=== PATIENT | female | born 1975 | race Caucasian/White ===

== ENCOUNTER → 2025-02-15 08:00 | Outpatient (REF) | payer OTHER, SELFPAY | LOC: RAD 08:00 | PROVIDERS: ATTENDING PHYSICIAN Family Medicine | DX: M79.604 Pain in right leg (principal) | CPT/HCPCS: 93971 ==

== ENCOUNTER 2025-04-30 10:29 | Emergency (ER) | payer OTHER, SELFPAY ==
[2025-04-30 10:30] VITALS: BP 179/100
--- NOTE | 2025-04-30 12:20 | ED.GENMED ---
History of Present Illness
General
Chief Complaint: Nose Bleed
Source: patient
Exam Limitations: none
Time Seen by Provider: 04/30/25 12:02
Nursing documentation reviewed up to this point in time: agreed with
History of Present Illness
History of Present Illness:
Note:
CHIEF COMPLAINT(S)
Nosebleed.
HISTORY OF PRESENT ILLNESS
The patient is a 50-year-old female who presented with a nosebleed occurring twice; the first episode lasted approximately 30 minutes. The patient is uncertain if the bleeding has been from one particular nostril and denies previous occurrences of
similar episodes. She did describe the presence of a significant clot at one point, which exited through the nose. There was no coughing of blood. The patient did not report any associated symptoms such as dizziness or lightheadedness, and there is
no history of nasal trauma or known bleeding disorders. The patient is advised not to touch or manipulate the nose to avoid disrupting any potential fragile vessels.
PLAN
The patient is instructed to use nasal saline and prescribed nasal drops to constrict blood vessels, with usage limited to three days to avoid potential rebound effects or nasal irritation. She is advised to sneeze with her mouth open to decrease
nasal pressure. The patient is also advised to refrain from blowing her nose for one to two weeks to allow the nasal tissues to heal adequately. A follow-up with an Ear, Nose, and Throat (ENT) specialist will be arranged to evaluate if further
intervention is needed. The patient is advised to follow up with her primary care physician for a blood pressure evaluation, as hypertension can contribute to epistaxis. She is also offered information to consult a specialist for blood pressure
management.
PHYSICAL EXAM
General: Alert, cooperative, no acute distress.
Skin: Warm, dry.
Head: Normocephalic, atraumatic.
Neck: Supple, trachea midline.
Eye Ears, Nose, Mouth and Throat: Oral mucosa moist, no visible hematomas or widening in the nasal area observed.
Cardiovascular: Normal peripheral perfusion, no edema.
Respiratory: Respirations are non-labored.
Gastrointestinal: Abdomen nondistended.
Back: Normal range of motion, normal alignment.
Musculoskeletal: Normal range of motion, normal strength.
Neurological: Alert and oriented to person, place, time, and situation, no focal neurological deficit observed.
Psychiatric: Cooperative, appropriate mood and affect.
DIFFERENTIAL DIAGNOSIS
The Differential Diagnosis includes, in no particular order and is not limited to:
1. Hypertension-related epistaxis
2. Nasal trauma
3. Nasal dryness or irritation
4. Coagulation disorder
5. Nasal septum deviation
6. Allergic rhinitis
7. Nasal polyps
8. Sinusitis
9. Medication-induced epistaxis (e.g., anticoagulants)
10. Hemangioma of the nasal passage
CARE-UPDATE
04/30/25 - 14:03
50-year-old female with epistaxis resolving, now stable and able for discharge. Patient prescribed oxymetalzone. Advised follow-up with cardiology to monitor blood pressure and with ENT if necessary.
Disposition:
SUMMARY OF ENCOUNTER
The patient, a 50-year-old female, presented with episodes of nosebleed, with the first occurring for approximately 30 minutes. She was uncertain if it originated from a specific nostril and noted a significant clot exiting through the nose. The
patient reported no previous similar episodes, no coughing of blood, dizziness, or lightheadedness, and denied any nasal trauma or known bleeding disorders. In the emergency department, she was managed with instructions to avoid contact with her
nose, avoid blowing her nose, and to utilize nasal saline along with a prescribed nasal decongestant for a limited duration to manage the symptoms and prevent recurrence.
DISPOSITION
Discharge home.
ASSESSMENT
Epistaxis, likely benign in nature.
PLAN
The patient is advised to use nasal saline and prescribed oxymetazoline drops limited to three days to constrict blood vessels. She should sneeze with her mouth open to reduce nasal pressure and avoid blowing her nose for one to two weeks to allow
for proper healing of the nasal tissues. A follow-up with an Ear, Nose, and Throat (ENT) specialist is arranged to determine if further intervention is needed. The patient should also follow up with her primary care physician for a blood pressure
check, as hypertension can contribute to nosebleeds. Information for consulting a specialist for blood pressure management is offered.
PATIENT EDUCATION AND COUNSELING
The patient was educated on avoiding manipulation of the nose, refraining from nose blowing, and using prescribed medications appropriately to prevent further episodes of epistaxis.
FOLLOW-UP INSTRUCTIONS
The patient is advised to follow up with a insurance coordinator for blood pressure evaluation and management and with an ENT specialist if further evaluation and treatment is necessary.
MEDICATION RECONCILIATION
Oxymetazoline nasal drops prescribed for three days.
MEDICAL DECISION MAKING
- Number and Complexity of Problems Addressed: Chronic conditions affecting care. The differential diagnosis included hypertension-related epistaxis, nasal trauma, nasal dryness or irritation, coagulation disorder, nasal septum deviation, allergic
rhinitis, nasal polyps, sinusitis, medication-induced epistaxis, and hemangioma of the nasal passage.
- Risk: Prescription medication was prescribed. Consideration of Admission/Observation: Escalation of care including admission/observation was considered given the complexity and risk of the patients presenting complaint, exam findings, and/or their
underlying comorbidities. However, ultimately I feel the patient is safe for outpatient management with close follow-up. Reasoning: Work-up reassuring, does not reveal any acute life/organ-threatening processes, patients symptoms well controlled
upon reevaluation, reexamination is reassuring, vitals are stable, patient agreeable with discharge, reliable for follow-up.
DIAGNOSIS
Epistaxis (R04.0)
Past History
Past History
ED Past Medical History: None
ED Past Surgical History: None
Social History
Tobacco: Non-smoker
Alcohol: None
Drug: None
Living: with family
Phy Exam
Physical Exam
Physical Exam:
.
Course
Orders/Labs/Results
Orders:
Orders
04/30/25 12:27
Oxymetazoline HCl [Afrin Nasal Peck] See Dose Instructions NASAL STAT STA
Vital Signs
Initial and Last Documented VS:
Initial Vital Signs
Temp Pulse Resp BP Pulse Ox
98.3 F 84 18 179/100 100
04/30/25 10:30 04/30/25 10:30 04/30/25 10:30 04/30/25 10:30 04/30/25 10:30
Last Documented Vital Signs
Temp Pulse Resp BP Pulse Ox
98.3 F 84 18 179/100 100
04/30/25 10:30 04/30/25 10:30 04/30/25 10:30 04/30/25 10:30 04/30/25 12:20
*Pulse Oximetry
SaO2: 100
Oxygen Mode of Delivery: Room air
Patient hypoxic: no
*Critical Care Note
Total Time (30-74mins, 75-104mins- exclusive of procedures): Not Applicable
ED Attending Note
-
Portions of this chart may have been created with voice recognition software.� Occasional wrong word or��sound alike� substitutions may have occurred due to the inherent limitations of voice recognition software.
Discharge Plan
Departure
Patient Disposition: Home (Routine Discharge)
Date of Disposition: 04/30/25
Time of Disposition: 12:28
Patient with high blood pressure during this ER visit?: Yes
Condition: Good
Discharge Problem:
Acute anterior epistaxis
Instructions: Nosebleeds (DC), BLOOD PRESSURE
Prescriptions:
No Action
metoprolol tartrate 100 MG tablet
100 mg PO HS
losartan [Cozaar] 100 MG tablet
100 mg PO DAILY
escitalopram oxalate 10 MG tablet
10 mg PO QPM
hydrochlorothiazide 12.5 MG tablet
12.5 mg PO DAILY
lorazepam 0.5 MG tablet
0.5 mg PO PRN PRN (Reason: anxiety)
Referrals:
Chemo Patterson MD [Active, Cardiology] - Call in 1-3 days for appt
Jasiel Horne Jr., DO [Family Provider, Internal Medicine]
Hamilton Colby MD [Active, ENT] - As needed
Interventions
Interventions:
*Risk Screen - Suicide Last Done: 04/30/25 10:30
*Nursing Disposition Last Done: 04/30/25 12:47
ED-EENT Assessment Last Done: 04/30/25 12:30
Discharge Date and Time
Discharge Date/Time: 04/30/25 12:48
Print Language: ICELANDIC
[2025-04-30] MEDS: AFRIN NASAL SPRAY 30 SPRAYS NASAL (12:33)
== END 2025-04-30 12:48 | disposition home or self-care (01) ==
LOC: EMR 10:29
PROVIDERS: EMERGENCY PHYSICIAN Emergency Medicine; FAMILY PHYSICIAN Family Medicine
DX: R04.0 Epistaxis (principal); R03.0 Elevated blood-pressure reading, without diagnosis of hypertension
CPT/HCPCS: 99283